=== PATIENT | female | born 1990 | race African-American/Black ===

== ENCOUNTER 2019-01-02 11:33 | Emergency (ER) | payer MEDICAID, OTHER ==
[~2019-01-02] VITALS: Ht 149.9 cm; Wt 54.4 kg
[2019-01-02 12:10] LABS: HEMATOCRIT 35 % (35-52); HEMOGLOBIN 11.4 G/DL (11.5-16.0); MEAN CORPUSCULAR HEMOGLOBIN 24 PG (25-34); MEAN CORPUSCULAR HGB CONC 32 G/DL (32-36); MEAN CORPUSCULAR VOLUME 74 FL (80-99); PLATELET COUNT 388 10^3/uL (130-400); RED CELL DISTRIBUTION WIDTH 13.3 % (10.0-14.5); WHITE BLOOD COUNT 6.9 10^3/uL (4.3-11.0)
[2019-01-02 12:11] LABS: BASOPHILS % (AUTO) 0 % (0-10); EOSINOPHILS % (AUTO) 0 % (0-10); LYMPHOCYTES # (AUTO) 2.3 X 10^3 (1.0-4.0); LYMPHOCYTES % (AUTO) 33 % (12-44); MEAN PLATELET VOLUME 10.5 FL (7.4-10.4); MONOCYTES # (AUTO) 0.5 X 10^3 (0.0-1.0); MONOCYTES % (AUTO) 7 % (0-12); NEUTROPHILS # (AUTO) 4.1 X 10^3 (1.8-7.8); NEUTROPHILS % (AUTO) 59 % (42-75)
[2019-01-02] MEDS ORDERED: ONDANSETRON 4 MG/2 ML (SDV) Z0FRAN IVP ONE (12:30)
[2019-01-02] MEDS ORDERED: NS IV 1000 ML 1,000 ML IV SCH (12:30)
[2019-01-02] MEDS ORDERED: fentaNYL INJECTION 100 MCG/2 ML AMP IVP ONE (12:30)
[2019-01-02 12:38] LABS: CARBON DIOXIDE 24 MMOL/L (21-32); CHLORIDE 98 MMOL/L (98-107); POTASSIUM 4.6 MMOL/L (3.6-5.0); SODIUM 138 MMOL/L (135-145)
[2019-01-02 12:39] LABS: ALANINE AMINOTRANSFERASE 11 U/L (0-55); ALBUMIN 4.3 GM/DL (3.2-4.5); ALKALINE PHOSPHATASE 67 U/L (40-136); BILIRUBIN,TOTAL 0.4 MG/DL (0.1-1.0); BUN/CREATININE RATIO 9; CALCIUM 9.9 MG/DL (8.5-10.1); CREATININE SERUM 0.88 MG/DL (0.60-1.30); GFR ESTIMATED > 60; GLUCOSE 112 MG/DL (70-105); LIPASE 31 U/L (8-78); TOTAL PROTEIN 8.3 GM/DL (6.4-8.2)
--- NOTE | 2019-01-02 12:48 | ED Abdominal Pain ---
General Chief Complaint: Abdominal/GI Problems Stated Complaint: ABD PAIN Nursing Triage Note: Patient and patient's grandmother report patient has had midline abdominal pain since yesterday, patient cannot remember last BM. Patient has a learning disability, grandmother is primary caregiver. Grandmother states patient had soup yesterday, but no food or fluids today. Grandmother states they returned from [place] one week ago, patient and grandmother deny any vomiting/nausea/diarrhea. Grandmother reports patient's LMP one week ago. Sepsis Screen: No Definite Risk Source of Information: Patient Exam Limitations: Other History of Present Illness Date Seen by Provider: Jan 02, 2019 Time Seen by Provider: 11:45 Initial Comments Patient is a 28-year-old female with history of developmental delay who presents with diffuse mid abdominal pain starting yesterday. Additional history is obtained by the patient's grandmother. No reports of vomiting, diarrhea. No reports of fever. Child with history of bilateral inguinal hernia repair. No other abdominal surgeries. Last menstrual period was one week ago. History is limited to the patient's cognitive impairment. Timing/Duration: 1 Day Severity/Quality: Moderate Location: Generalized Abdomen Radiation: No Radiation Associated Symptoms: Other Allergies and Home Medications Allergies Coded Allergies: No Known Drug Allergies (Unverified , 01/02/19) Patient Home Medication List Home Medication List Reviewed: Yes Review of Systems Review of Systems Constitutional: other (review symptoms limited as per history of present illne ss.) Past Dtxopru-Dkeyma-Faryxk Hx Past Med/Social Hx: Reviewed Nursing Past Med/Soc Hx Patient Social History Recent Foreign Travel: Yes Contact w/Someone Who Travel: Yes Recent Infectious Disease Expo: No Past Medical History Last Menstrual Period: Dec 26, 2018 Physical Exam Vital Signs Vital Signs - First Documented 01/02/19 11:40 Temp 97.1 Pulse 129 Resp 18 B/P (MAP) 144/86 (105) Pulse Ox 100 O2 Delivery Room Air Capillary Refill : Less Than 3 Seconds Height/Weight/BMI Height: 4'11.00" Weight: 120lbs. oz. [id number]; BMI Method:Stated General Appearance: moderate distress (secondary pain) HEENT: PERRL/EOMI, normal ENT inspection Neck: supple Respiratory: chest non-tender, lungs clear, normal breath sounds Cardiovascular: tachycardia Gastrointestinal: soft, distended, tenderness (midepigastric pain, tenderness.) Extremities: normal range of motion Back: normal inspection, no CVA tenderness Skin: normal color Progress/Results/Core Measures Results/Orders Lab Results Laboratory Tests Test 01/02/19 12:00 01/02/19 12:05 01/02/19 13:45 Range/Units White Blood Count 6.9 4.3-11.0 10^3/uL Red Blood Count 4.76 4.35-5.85 10^6/uL Hemoglobin 11.4 L 11.5-16.0 G/DL Hematocrit 35 35-52 % Mean Corpuscular Volume 74 L 80-99 FL Mean Corpuscular Hemoglobin 24 L 25-34 PG Mean Corpuscular Hemoglobin Concent 32 32-36 G/DL Red Cell Distribution Width 13.3 10.0-14.5 % Platelet Count 388 130-400 10^3/uL Mean Platelet Volume 10.5 H 7.4-10.4 FL Neutrophils (%) (Auto) 59 42-75 % Lymphocytes (%) (Auto) 33 12-44 % Monocytes (%) (Auto) 7 0-12 % Eosinophils (%) (Auto) 0 0-10 % Basophils (%) (Auto) 0 0-10 % Neutrophils # (Auto) 4.1 1.8-7.8 X 10^3 Lymphocytes # (Auto) 2.3 1.0-4.0 X 10^3 Monocytes # (Auto) 0.5 0.0-1.0 X 10^3 Eosinophils # (Auto) 0.0 0.0-0.3 10^3/uL Basophils # (Auto) 0.0 0.0-0.1 10^3/uL Sodium Level 138 135-145 MMOL/L Potassium Level 4.6 3.6-5.0 MMOL/L Chloride Level 98 98-107 MMOL/L Carbon Dioxide Level 24 21-32 MMOL/L Anion Gap 16 H 5-14 MMOL/L Blood Urea Nitrogen 8 7-18 MG/DL Creatinine 0.88 0.60-1.30 MG/DL Estimat Glomerular Filtration Rate > 60 BUN/Creatinine Ratio 9 Glucose Level 112 H 70-105 MG/DL Calcium Level 9.9 8.5-10.1 MG/DL Corrected Calcium 9.7 8.5-10.1 MG/DL Total Bilirubin 0.4 0.1-1.0 MG/DL Aspartate Amino Transf (AST/SGOT) 18 5-34 U/L Alanine Aminotransferase (ALT/SGPT) 11 0-55 U/L Alkaline Phosphatase 67 40-136 U/L Total Protein 8.3 H 6.4-8.2 GM/DL Albumin 4.3 3.2-4.5 GM/DL Lipase 31 8-78 U/L Serum Test, Qualitative NEGATIVE NEGATIVE Urine Color PALE YELLOW Urine Clarity CLEAR Urine pH 7.0 5-9 Urine Specific [place] <=1.005 1.016-1.022 Urine Protein NEGATIVE NEGATIVE Urine Glucose (UA) NEGATIVE NEGATIVE Urine Ketones TRACE H NEGATIVE Urine Nitrite NEGATIVE NEGATIVE Urine Bilirubin NEGATIVE NEGATIVE Urine Urobilinogen 0.2 NORMAL MG/DL Urine Leukocyte Esterase NEGATIVE NEGATIVE Urine RBC (Auto) NEGATIVE NEGATIVE Urine RBC NONE /HPF Urine WBC RARE /HPF Urine Squamous Epithelial Cells 2-5 /HPF Urine Crystals NONE /LPF Urine Bacteria NEGATIVE /HPF Urine Casts NONE /LPF Urine Mucus NONE /LPF Urine Culture Indicated NO My Orders Orders - NISA BEY DO Cbc With Automated Diff (01/02/19 11:50) Comprehensive Metabolic Panel (01/02/19 11:50) Ua Culture If Indicated (01/02/19 11:50) Lipase (01/02/19 11:50) Hcg,Qualitative Serum (01/02/19 11:50) Fentanyl Injection (Sublimaze Injection (01/02/19 12:30) Ondansetron Injection (Zofran Injectio (01/02/19 12:30) Ns Iv 1000 Ml (Sodium Chloride 0.9%) (01/02/19 12:30) Ct Abdomen/Pelvis W (01/02/19 12:52) Iohexol Injection (Omnipaque 350 Mg/Ml 1 (01/02/19 13:00) Received Contrast (Hold Metformin- Contr (01/02/19 13:00) Sodium Chloride Flush (Catheter Flush Sy (01/02/19 13:00) Ns (Ivpb) (Sodium Chloride 0.9% Ivpb Bag (01/02/19 13:00) Ketorolac Injection (Toradol Injection) (01/02/19 14:15) Medications Given in ED Current Medications Medications Dose Ordered Sig/Heydi Route Start Time Stop Time Status Last Admin Dose Admin Fentanyl Citrate 50 mcg ONCE ONCE IVP 01/02/19 12:30 01/02/19 12:31 DC 01/02/19 12:43 50 MCG Iohexol 100 ml ONCE ONCE IV 01/02/19 13:00 01/02/19 13:02 DC 01/02/19 13:21 100 ML Ondansetron HCl 4 mg ONCE ONCE IVP 01/02/19 12:30 01/02/19 12:31 DC 01/02/19 12:43 4 MG Sodium Chloride 10 ml NEEDED PRN IV 01/02/19 13:00 01/02/19 13:22 10 ML Sodium Chloride 100 ml ONCE ONCE IV 01/02/19 13:00 01/02/19 13:02 DC 01/02/19 13:22 80 ML Vital Signs/I&O 01/02/19 11:40 Temp 97.1 Pulse 129 Resp 18 B/P (MAP) 144/86 (105) Pulse Ox 100 O2 Delivery Room Air Blood Pressure Mean: 105 Departure Communication (Admissions) CT abdomen and pelvis, labs are nondiagnostic. Patient's symptoms improved with treatment. Because of patient's symptoms and known but possibly related to a ruptured cyst or obstipation versus early appendicitis is unknown cause. Discussed with the patient's grandmother who requested take patient home. Will treat with MiraLAX and mag citrate with instructions to return to the ED in 24 hours for reevaluation if symptoms persist. Patient's grandmother verbalizes understanding agreement prior to departure Impression Primary Impression: Abdominal pain Disposition: 01 HOME, SELF-CARE Condition: Improved Departure-Patient Inst. Decision time for Depature: 14:18 Referrals: [facility] (PCP) Primary Care Physician LIYAH ERAZO APRN (Family) Primary Care Physician Patient Instructions: Acute Abdomen (Belly Pain), Adult (DC) Add. Discharge Instructions: Nafisa was evaluated in the ED for abdominal pain. Lab and imaging studies were performed and are nondiagnostic. Because of Nafisa's pain has not been determined. Please take Bentyl as needed for pain and have Nafisa drink one half bottle of magnesium citrate twice daily. If Nafisa's pain continues to have symptoms tomorrow, return to the ED for reevaluation. All discharge instructions reviewed with patient and/or family. Voiced understanding. Scripts Dicyclomine HCl (Dicyclomine HCl) 10 Mg Capsule 10 MG PO TID, #20 CAP Prov: NISA BEY DO 01/02/19 NISA BEY DO Jan 02, 2019 12:48
[2019-01-02] MEDS ORDERED: HOLD METFORMIN - RECEIVED CONTRAST 20 ML VIAL IV SCH (13:00)
[2019-01-02] MEDS ORDERED: NS 100 ML (IVPB) BAG IV ONE (13:00)
[2019-01-02] MEDS ORDERED: IOHEXOL 350 MG/ML 100 ML (OMNIPAQUE 350) VIAL IV ONE (13:00)
[2019-01-02] MEDS ORDERED: CATHETER FLUSH 10 ML SYR IV PRN (13:00)
--- NOTE | 2019-01-02 13:48 | Diagnostic Imaging Report ---
PROCEDURE: CT abdomen and pelvis with contrast. TECHNIQUE: Multiple contiguous axial images were obtained through the abdomen and pelvis after administration of intravenous contrast. Auto Exposure Controls were utilized during the CT exam to meet ALARA standards for radiation dose reduction. INDICATION: Mid abdominal pain. FINDINGS: The lung bases are clear. Liver demonstrates generalized low density consistent with hepatic steatosis. The gallbladder is unremarkable. No biliary ductal dilatation is seen. The pancreas and spleen are unremarkable. No adrenal mass is seen. Kidneys are without evidence of calculi or hydronephrosis. Aorta is non-aneurysmal. Bowel loops are normal caliber. No definite obstruction is seen. The appendix is difficult to visualize on this exam, but no definite inflammatory process in the right lower quadrant is identified. Uterus and ovaries are unremarkable. There is some free fluid in the pelvis which may be physiologic. No free air is detected. Bladder is unremarkable. IMPRESSION: 1. Hepatic steatosis. 2. No acute feature in the abdomen or pelvis. No definite CT evidence of urinary tract calculi, obstruction or acute appendicitis. Dictated by: Dictated on workstation # [id number]
[2019-01-02 14:05] LABS: CLARITY,URINE CLEAR; COLOR,URINE PALE YELLOW; GLUCOSE, URINE (UA) NEGATIVE (NEGATIVE); PROTEIN,URINE NEGATIVE (NEGATIVE)
[2019-01-02 14:06] LABS: KETONES,URINE TRACE (NEGATIVE)
[2019-01-02 14:07] LABS: BACTERIA,URINE NEGATIVE /HPF; BILIRUBIN,URINE NEGATIVE (NEGATIVE); LEUKOCYTE ESTERASE ,URINE NEGATIVE (NEGATIVE); NITRITE,URINE NEGATIVE (NEGATIVE); UROBILINOGEN,URINE 0.2 MG/DL (NORMAL); WBC,URINE RARE /HPF
[2019-01-02] MEDS ORDERED: KETOROLAC 30 MG/ML VIAL IVP ONE (14:15)
[2019-01-02] MEDS ORDERED: DICY10CA12 PO (14:21)
[2019-01-02 14:50] VITALS: BP 135/78
== END 2019-01-02 14:52 | disposition home or self-care (01) ==
LOC: EDUNIT# 11:33 → ER FS 11:35
DX: R10.84 Generalized abdominal pain (principal)
CPT/HCPCS: 36415; 74177; 80053; 81000; 83690; 84703; 85025